=== PATIENT | female | born 1990 ===

== ENCOUNTER 2019-02-17 10:07 | Outpatient (CLI) | payer OTHER ==
[~2019-02-17] VITALS: Ht 152.4 cm; Wt 59.0 kg
== END 2019-02-17 18:24 | disposition home or self-care (01) ==
LOC: OFIC 805 10:07
DX: H61.23 Impacted cerumen, bilateral (principal); H60.8X3 Other otitis externa, bilateral

== ENCOUNTER 2019-08-29 17:12 | Emergency (ER) | payer OTHER ==
[~2019-08-29] VITALS: Ht 157.5 cm; Wt 59.0 kg
== END 2019-08-29 22:09 | disposition home or self-care (01) ==
LOC: ER 17:12
DX: K52.89 Other specified noninfective gastroenteritis and colitis (principal)